=== PATIENT | male | born 1940 | race Hispanic/Latino ===

== ENCOUNTER 2022-11-07 11:58 | Emergency (ER) | payer MEDICARE, OTHER ==
[2022-11-07] MEDS ORDERED: cefTRIAXone (ROCEPHIN) 2 GM VIAL ONE (15:50)
[2022-11-07] MEDS ORDERED: Clindamycin/D5W 900 MG in Premix Bag 1 BAG IVPB SCH (16:30)
[2022-11-07 16:42] LABS: #Eosinphils 0.2 thou/uL (0.0-0.7); #Monocytes 0.7 thou/uL (0.11-0.59); #Neutrophils 4.4 thou/uL (1.40-6.50); %Basophils 0.5 % (0.0-1.0); %Eosinophils 3.1 % (0.0-10.0); %Lymphocytes 30.5 % (21.0-51.0); %Monocytes 8.9 % (0.0-10.0); %Neutrophils 56.7 % (42.0-75.0); Hematocrit 46.1 % (42.0-52.0); Hemoglobin 14.6 g/dL (14.0-18.0); Mean Corpuscular HGB CONC 31.7 g/dL (32.0-36.0); Mean Corpuscular Hemoglobin 33.7 pg (27.0-31.0); Mean Corpuscular Volume 106.5 fl (78.0-98.0); Mean Platelet Volume 10.6 fL (7.4-10.4); Platelet Count 181 10x3/uL (130-400); RBC Distribution Width 13.2 % (11.5-14.5); Red Blood Cell (RBC) Count 4.33 mill/uL (4.70-6.10); White Blood Cell (WBC) Count 7.8 10x3/uL (4.8-10.8)
[2022-11-07 17:33] LABS: AST (SGOT) 19 U/L (5-34); Anion Gap 12 mmol/L (10-20); Bilirubin, Total 0.5 mg/dL (0.2-1.2); Calcium 9.4 mg/dL (7.8-10.44); Carbon Dioxide 20 mmol/L (23-31); Chloride 108 mmol/L (98-107); Potassium 4.9 mmol/L (3.5-5.1); Protein, Total 7.7 g/dL (5.8-8.1); Sodium 135 mmol/L (136-145)
[2022-11-07 17:34] LABS: Albumin 3.8 g/dL (3.4-4.8); Globulin 3.9 g/dL (2.4-3.5)
[2022-11-07 17:36] LABS: Glucose 79 mg/dL (83-110)
[2022-11-07 17:39] LABS: Alkaline Phosphatase 70 U/L (40-110)
[2022-11-07 17:40] LABS: BUN (Urea Nitrogen) 10 mg/dL (8.4-25.7); Calc. Creatinine Clearance 0 mL/min (70-130); Estimated GFR 91
[2022-11-07 17:42] LABS: ALT (SGPT) 15 U/L (8-55)
== END 2022-11-07 18:49 | disposition home or self-care (01) ==
LOC: ERS 11:58
DX: L03.115 Cellulitis of right lower limb (principal); E03.9 Hypothyroidism, unspecified
CPT/HCPCS: 36415; 80053; 83605; 85025; 86140; 87040; 96365; 96366; 96367; J0696; J3490